=== PATIENT | female | born 1965 | race Caucasian/White ===

== ENCOUNTER 2021-05-01 14:30 | Emergency (ER) | payer MEDICAID ==
[~2021-05-01] VITALS: Ht 167.6 cm; Wt 76.2 kg
[2021-05-01] MEDS ORDERED: NEXIUM (14:39)
[2021-05-01] MEDS ORDERED: BYSTOLIC (14:39)
[2021-05-01] MEDS ORDERED: XANAX (14:39)
[2021-05-01] MEDS ORDERED: ASPIRIN 325 MG TABLET PO ONE (15:15)
[2021-05-01] MEDS ORDERED: ASPIRIN 325 MG TABLET ONE (16:26)
[2021-05-01 16:39] LABS: HEMATOCRIT 40.8 % (31.2-41.9); MEAN CORPUSCULAR HEMOGLOBIN 33.8 uug (24.7-32.8); MEAN CORPUSCULAR VOLUME 96.5 fL (75.5-95.3); PLATELET COUNT (AUTO) 466 K/uL (179-408)
[2021-05-01 17:00] LABS: CREATININE 0.9 mg/dL (0.6-1.3); POTASSIUM 4.5 mmol/L (3.5-5.1)
[2021-05-01 17:13] LABS: BILIRUBIN,DIRECT 0.1 mg/dL (0.0-0.2); BILIRUBIN,TOTAL 0.2 mg/dL (0.2-1.0); TOTAL PROTEIN, SERUM 8.2 g/dL (6.4-8.2)
--- NOTE | 2021-05-01 17:20 | NUR ---
Patient was seen by Dr James today
--- NOTE | 2021-05-01 19:19 | NUR ---
Shelley harrell in [facility] - 05/01/21 at 1920 by JULIO CESAR Given immediately prior to intubation around 1320
--- NOTE | 2021-05-01 19:20 | NUR ---
Patient insists on smoking states she smokes 3 packs a day. She was allowed outside for one cigarette and now she is back in the room. BP 137/84
[2021-05-01 20:00] VITALS: BP 137/84
--- NOTE | 2021-05-01 20:00 | NUR ---
Patient does not wish to proceed with medical care recommended by Dr. James. Patient given information related to possible complications, up to and including , which could occur as a result of leaving the hospital at this time. Patient verbalizes understanding of risks involved due to leaving against medical advice. Patient has signed AMA form.
== END 2021-05-01 20:00 | disposition left against medical advice (07) ==
LOC: ER 14:30
DX: R07.9 Chest pain, unspecified (principal); R20.2 Paresthesia of skin; R42 Dizziness and giddiness; E78.5 Hyperlipidemia, unspecified; K21.9 Gastro-esophageal reflux disease without esophagitis; Z79.899 Other long term (current) drug therapy
CPT/HCPCS: 36415; 70030-TC; 71045; 85025; 93005; A4663; G0500